=== PATIENT | male | born 1975 | race African-American/Black ===

== ENCOUNTER 2024-01-23 11:25 | Emergency (ER) | payer MEDICAID ==
[~2024-01-23] VITALS: Ht 180.3 cm; Wt 78.0 kg
[2024-01-23 11:33] VITALS: O2SAT 98
[2024-01-23] MEDS: LEVETIRACETAM 500MG PREMIX 100 ML IV ONE (12:15)
[2024-01-23 12:24] LABS: EOSINOPHILS % 0.5 % (0.0-5.0); HEMATOCRIT. 41.2 % (42.0-52.0); HEMOGLOBIN. 13.7 g/dL (14.0-18.0); LYMPHOCYTES % 29.4 % (20.0-50.0); MEAN CORPUSCULAR HEMOGLOBIN 32.5 pg (28.0-32.0); MEAN CORPUSCULAR HGB CONC 33.2 g/dL (31.0-37.0); MEAN PLATELET VOLUME 10.1 fl (7.4-10.4); MONOCYTES % 4.9 % (2.0-8.0); NEUTROPHILS % 64.2 % (40.0-76.0); PLATELET 249 x1000/uL (130-400); RED BLOOD CELL COUNT 4.21 mill/uL (4.7-6.1); RED CELL DISTRIBUTION WIDTH 15.4 % (11.6-14.6); WHITE BLOOD COUNT 6.7 x1000/uL (4.5-11.0)
[2024-01-23 12:30] LABS: CHLORIDE 101 mEq/L (98-107); POTASSIUM 4.1 mEq/L (3.5-5.1); SODIUM 136 mEq/L (136-145)
[2024-01-23 12:31] LABS: CARBON DIOXIDE 14 mEq/L (21-32)
[2024-01-23 12:36] LABS: CREATININE 1.2 mg/dL (0.6-1.3); GLUCOSE 134 mg/dL (70-105); UREA NITROGEN BLOOD 15 mg/dL (9-23)
[2024-01-23] MEDS: PHENYTOIN SODIUM 500 MG in SODIUM CHLORIDE 0.9% 50 ML IV ONE (12:59)
[2024-01-23 13:47] VITALS: BP 160/97; PULSE 108; RESP 11
[2024-01-23 14:00] VITALS: TEMP 97.8
[2024-01-23] MEDS: ACETAMINOPHEN 500MG TABLET PO NR (14:00)
[2024-01-23 15:15] LABS: ETHANOL BLOOD < 10 mg/dL (<10)
== END 2024-01-23 14:10 | disposition home or self-care (01) ==
LOC: ER 11:25
DX: R56.9 Unspecified convulsions (principal)
CPT/HCPCS: 80048; 80320; 85025; 36415; 96365; 99284; J1953; J1165; Z7610 ×4; G0480